=== PATIENT | female | born 1995 | race Caucasian/White ===

== ENCOUNTER 2016-08-07 12:32 | Inpatient (IN) | payer OTHER ==
[2016-08-07] MEDS ORDERED: METHYLERGONOVINE 0.2 MG/ML 1 ML AMP IM PRN (13:15)
[2016-08-07] MEDS ORDERED: LIDOCAINE 1% (PF) 10 MG/ML (30 ML SDV) SQ PRN (13:15)
[2016-08-07] MEDS ORDERED: CARBOPROST TROMETHAMINE 250 MCG/ML 1 ML AMP IM PRN (13:15)
[2016-08-07] MEDS ORDERED: TERBUTALINE 1 MG/ML VIAL SQ PRN (13:15)
[2016-08-07] MEDS ORDERED: OXYTOCIN 10 UNIT/ML 1 ML VIAL IM PRN (13:15)
[2016-08-07] MEDS: LACTATED RINGERS 1,000 ML IV SCH ×2 (13:19→13:59)
[2016-08-07 13:36] LABS: Basophils % (A) 0 %; CH 31.6; CHCM 34.4; Eosinophils # (A) 0.1 k/uL (0-0.7); Eosinophils % (A) 1 %; HCT 40.3 % (34.0-46.0); HDW 2.76; HGB 13.5 gm/dL (11.4-16.0); Luc # (Auto) 0.13; Luc % (Auto) 1; Lymphocytes # (A) 1.6 k/uL (1.0-4.8); Lymphocytes % (A) 10 %; MCHC 33.5 g/dL (31.0-37.0); MCV 92.6 fL (80.0-100.0); Mean Platelet Volume 10.1; Monocytes # (A) 0.5 k/uL (0-1.0); Monocytes % (A) 3 %; Neutrophils # (A) 14.3 k/uL (1.3-7.7); Neutrophils % (A) 86 %; RBC 4.36 m/uL (3.80-5.40); RDW 13.3 % (11.5-15.5); WBC 16.7 k/uL (3.8-10.6); WBC (Perox) 17.96
[2016-08-07] MEDS ORDERED: SODIUM CHLORIDE 0.9% 100 ML BAG ONE (13:50)
[2016-08-07] MEDS ORDERED: BUPIVACAINE (PF) 0.25% 30 ML VIAL ONE (13:50)
[2016-08-07] MEDS ORDERED: fentaNYL (PF) 50 MCG/ML 5 ML AMP ONE (13:50)
[2016-08-07] MEDS ORDERED: BUPIVACAINE (PF) 0.25% 25 ML, fentaNYL (PF) 200 MCG in SODIUM CHLORIDE 0.9% 71 ML EPIDURAL ONE (14:07)
--- NOTE | 2016-08-07 14:57 | P.HPOB ---
History of Present Illness H&P Date: 08/07/16 Chief Complaint: Strong regular uterine contractions This is a 21-year-old white female 1 para 0 EDC 08/07/2016 at 40 weeks gestation. Patient presents with strong regular uterine contractions at home. She denies vaginal bleeding or fluid leakage. Fetus is been active throughout the . Obstetric history: Blood type is O+, group B strep cultures negative, rubella status immune. Pap smear, gonorrhea and chlamydia cultures, urine culture, hepatitis B surface antigen, HIV testing all negative. Thyroid function studies normal. Past medical history is significant for irritable bowel syndrome and heart murmur as a child. Past surgical history oral surgery in the past, colonoscopy. Current medications vitamins. ALLERGIES amoxicillin to which reports blacking out. Family history noncontributory. On exam this is a pleasant white female, vital signs are stable and she is afebrile. The general physical exam is within normal limits. The chest is clear in all chao. Cervix is 8 cm, 100%, -2, vertex. Artificial amniorrhexis reveals clear fluid. heart rate consistent with reactive NST. Epidural is placed and performing well. Impression: 40 week intrauterine , active labor, all signs reassuring. Plan: Close maternal and surveillance. Anticipate normal spontaneous vaginal delivery. Past Medical History Past Medical History: No Reported History History of Any Multi-Drug Resistant Organisms: None Reported Past Surgical History: No Surgical Hx Reported Past Anesthesia/Blood Transfusion Reactions: No Reported Reaction Past Psychological History: No Psychological Hx Reported Smoking Status: Never smoker Past Drug Use History: None Reported - Past Family History Father Family Medical History: Cancer Additional Family Medical History / Comment(s): skin cancer Medications and Allergies Home Medications Medication Instructions Recorded Confirmed Type Pnv with Ca,No.72/Iron/FA 1 tab PO DAILY 08/07/16 08/07/16 History [ Plus Tablet] Allergies Allergy/AdvReac Type Severity Reaction Status Date / Time No Known Allergies Allergy Verified 08/07/16 12:54 Exam - Vital Signs Vital signs: Vital Signs Temp Pulse Resp BP 08/07/16 14:22 97.2 F L 106 H 18 134/90 Intake and Output 08/06/16 08/07/16 08/07/16 22:59 06:59 14:59 Intake Total 1000 Balance 1000 Intake: IV 1000 Lactated Ringers 1,000 ml 1000 @ 125 mls/hr IV .Q8H [facility] Rx#:[id number] Other: # Voids 2 Weight 72.575 kg Patient Weight 08/08/16 06:59 Weight 72.575 kg Results Result Diagrams: 08/07/16 13:15 Abnormal Lab Results - Last 24 Hours (Table) 08/07/16 Range/Units 13:15 WBC 16.7 H (3.8-10.6) k/uL Neutrophils # 14.3 H (1.3-7.7) k/uL
[2016-08-07] MEDS ORDERED: OXYTOCIN 30 UNITS/500 ML NS 30 UNIT in SALINE 1 500ML.BAG IV SCH ×2 (16:00→18:45)
[2016-08-07] MEDS ORDERED: SIMETHICONE 80 MG CHEWABLE PO PRN (18:34)
[2016-08-07] MEDS ORDERED: ACETAMINOPHEN TAB 325 MG TAB PO PRN (18:34)
[2016-08-07] MEDS ORDERED: ZOLPIDEM 5 MG TAB PO PRN (18:34)
[2016-08-07] MEDS ORDERED: LANOLIN CREAM 5 GM TUBE TOPICAL PRN (18:34)
[2016-08-07] MEDS ORDERED: Acetaminophen-Codeine 300-30mg TAB PO PRN (18:34)
[2016-08-07] MEDS ORDERED: HYDROCORTISONE 2.5% RECTAL CREAM 30 GM TUBE RECTAL PRN (18:34)
[2016-08-07] MEDS ORDERED: WITCH HAZEL 1 EACH MED..PAD TOPICAL PRN (18:34)
[2016-08-07] MEDS ORDERED: BENZOCAINE/MENTHOL SPRAY 1 GM/SPRAY AEROSOL TOPICAL PRN (18:34)
[2016-08-07] MEDS ORDERED: diphenhydrAMINE 50 MG/ML 1 ML VIAL IVP PRN ×2 (18:34)
[2016-08-07] MEDS ORDERED: diphenhydrAMINE 25 MG CAP PO PRN (18:34)
[2016-08-07] MEDS ORDERED: diphenhydrAMINE 50 MG CAP PO PRN (18:34)
--- NOTE | 2016-08-07 18:34 | P.PROBDLV ---
Vaginal Delivery Note - . Vaginal Delivery Note: This is a 21-year-old white female 1 para 0 EDC 08/17/2016 at 40 weeks gestation. Patient presented with strong regular uterine contractions from home. Artificial amniorrhexis revealed clear fluid. heart tones were reassuring throughout the first stage of labor. Excellent [id number]-oo-[id number] variability was noted. Patient requested and received an epidural and this was placed without difficulty. She became completely dilated at 1711 hrs. She began the second stage of labor. The epidural was discontinued. heart rate was noted to have occasional late decelerations. For this reason oxygen was given and position changes were instituted. Good recovery to baseline was noted. Patient pushed successfully, and ultimately the perineal body was prepped and draped in usual sterile fashion. There was a large amount of Noted, however the baby delivered occiput anterior and restituted accordingly. The oropharynx, nasopharynx, and external nares were bulb suctioned on the perineal body. Patient was officially delivered of a liveborn female infant at 1814 hrs. Umbilical cord was doubly clamped and ligated, she was handed to waiting nurses for evaluation where scores of 35 and 6 at one and 5 and 10 minutes respectively were given. The placenta delivered spontaneously, it was inspected and noted to be intact with trivascular cord at 1816 hrs. At this time the perineal body was redraped and the uterus was massaged. Speculum cervix, vagina, perineum and periurethral areas revealed a small first- degree perineal laceration that was easily repaired in the usual sterile fashion using 3-0 Vicryl suture. Fundus is firm and in the midline, symmetric and 18 week size upon completion of delivery. Estimated blood loss 350 mL's. All sponge needle and enhancement counts are correct at the end of the procedure. Infant weighed 7 lbs. 13 oz. or 3540 g.
[2016-08-07] MEDS: IBUPROFEN 600 MG TAB PO PRN (18:58)
[2016-08-07 20:01] VITALS: RESP 16
[2016-08-08] MEDS: IBUPROFEN 600 MG TAB PO PRN ×2 (04:14→12:13)
[2016-08-08] MEDS: SENNOSIDES-DOCUSATE SODIUM 1 EACH TAB PO SCH ×2 (04:19→08:18)
--- NOTE | 2016-08-08 08:37 | P.DS ---
Providers Date of admission: 08/07/16 12:51 Expected date of discharge: 08/08/16 Attending physician: Janine [facility] Course: This is a 21-year-old white female 1 para 0 EDC 08/07/2016 at 40 weeks gestation. Patient presented to labor and delivery in active spontaneous labor. was essentially unremarkable, group B strep cultures negative , blood type O positive, rubella status immune. Please see my dictated history and physical for details. Artificial amniorrhexis revealed clear fluid. Epidural was requested and placed. She progressed well through the first stage of labor. Second stage of labor was 1 hour and 3 minutes. She went on to deliver a liveborn female with scores of 35 and 7 at one and 5 and 10 minutes respectively. Infant then transitioned well in the nursery. Estimated blood loss at delivery 350 mL's. Trivascular cord noted with intact placenta. Infant weight 3540 g or 7 lbs. 13 oz. Please see my dictated delivery note for details. A small first-degree perineal laceration was easily repaired. This morning the patient and her baby are both doing well. The patient is voiding, ambulating and passing flatus without difficulty. Vital signs are stable and she is afebrile. Fundus is firm and at the umbilicus, nontender, smooth and symmetric, midline. Minimal to moderate lochia rubra is noted. Perineal body is clean and dry. Breasts are not engorged. Breast-feeding is going well. [place] is doing well. Patient is being discharged home today in very good condition. She will follow- up with me in the office in 6 weeks. I have reminded her no intercourse, tampons or douching. She will use [id number] Advil products, ibuprofen 200 mg pills, 3 every 6 hours as needed for pain. I've asked her to call me with any fevers shakes or chills, foul smelling or copious vaginal drainage, with the passage of large blood clots, with any pain not alleviated by over-the- counter products, with any difficulties breast-feeding, or with any concerns. I have given her prescription for a double electric breast pump. We've discussed options of contraception and we will discuss this further in the office. Patient Condition at Discharge: Good Plan - Discharge Summary Discharge Medication List Pnv with Ca,No.72/Iron/FA [ Plus Tablet] 1 tab PO DAILY 08/07/16 [ History] Follow up Appointment(s)/Referral(s): Janine Narvaez MD [STAFF PHYSICIAN] - 6 Weeks Discharge Disposition: HOME SELF-CARE
[2016-08-08 15:59] VITALS: BP 108/57; PULSE 88; TEMP 97.9
== END 2016-08-08 19:42 | disposition home or self-care (01) | DRG 775 ==
LOC: FBPOP 12:32 → 4FBP 12:51
PROVIDERS: ADMIT Obstetrics & Gynecology; ATTEND Obstetrics & Gynecology
PROC: 10E0XZZ Delivery of Products of Conception, External Approach (ICD-10-PCS; principal; 2016-08-07)
PROC: 10907ZC Drainage of Amniotic Fluid, Therapeutic from Products of Conception, Via Natural or Artificial Opening (ICD-10-PCS; 2016-08-07)
PROC: 0HQ9XZZ Repair Perineum Skin, External Approach (ICD-10-PCS; 2016-08-07)
PROC: 3E0S3NZ Introduction of Analgesics, Hypnotics, Sedatives into Epidural Space, Percutaneous Approach (ICD-10-PCS; 2016-08-07)
DX: O70.0 First degree perineal laceration during delivery (principal); K58.9 Irritable bowel syndrome, unspecified; O76 Abnormality in fetal heart rate and rhythm complicating labor and delivery; O99.62 Diseases of the digestive system complicating childbirth; Z3A.40 40 weeks gestation of pregnancy; Z37.0 Single live birth; Z80.8 Family history of malignant neoplasm of other organs or systems; Z86.79 Personal history of other diseases of the circulatory system; Z88.0 Allergy status to penicillin
CPT/HCPCS: 59025; 85025; 88307; 99213

== ENCOUNTER 2022-10-07 18:38 | Outpatient (CLI) | payer OTHER ==
[2022-10-07 20:47] VITALS: BP 160/95; PULSE 126; RESP 18; TEMP 97.3
--- NOTE | 2022-11-22 11:58 | P.MSEPDOC ---
Presenting Problems - Arrival Data Date of Arrival on Unit: 10/07/22 Time of Arrival on Unit: 18:38 Mode of Transport: Ambulatory - Complaint OB-Reason for Admission/Chief Complaint: Rule Out SROM Comment: pt. states possible SROM at 1805, clear fluid Medical History - Information : 3 Para: 1 Term: 1 : 0 Abortions: Spontaneous or Elective: 1 Number of Living Children: 1 - Gestational Age Gestational Age by ALBA (wks/days): 36 Weeks and 4 Days Review of Systems - Review of Systems Constitutional: No problems Breast: No problems ENT: No problems Cardiovascular: No problems Respiratory: No problems Gastrointestinal: No problems Genitourinary: No problems Musculoskeletal: No problems Neurological: No problems Skin: No problems Vital Signs - Temperature Temperature: 97.3 F Temperature Source: Temporal Artery Scan - Pulse Pulse Oximetery Pulse Rate: 126 Pulse Assessment Method: Automatic Cuff - Respirations Respiratory Rate: 18 Oxygen Delivery Method: Room Air O2 Sat by Pulse Oximetry: 99 - Blood Pressure Right Arm Blood Pressure: 160/95 Blood Pressure Mean: 116 Blood Pressure Source: Automatic Cuff Medical Screen Scoring - Cervical Exam Dilation (cm): 3 Effacement (%): 60 Membranes: Intact - Uterine Contractions Resting: Soft to palpation - Assessment - Baby A Baseline FHR: 125 Heart Rate - NICHD Category: Category I (Normal) NST: Reactive Physician Notification - Physician Notified Physician Notified Date: 10/07/22 Physician Notified Time: 19:52 Physician: Janine Narvaez Order Received: Yes - Notification Comment Comment: pt. presents to triage due to possible SROM, 3 amnisures collected and all 3 negative, cat 1 FHTs, reactive NST, irribility pt. denies any contractions, pt. cervix 3, 60%, high, vitals reviewed inital BP was 160/95, and HR 126,pt. states she is anxiouse BP resolved 125/83 pulse 98. pt. is on flaggel for bacterial vaginosis. order to discharge pt. home on pelvic rest and increase oral fluids. Maternal Triage Index - Maternal Triage Index Presenting for scheduled procedure w/no complaint: No - Stat/Priority 1 Stat Priority 1: No - Urgent/Priority 2 Urgent Priority 2: No - Prompt/Priority 3 Prompt Priority 3: Yes Criteria Met for Priority 3: pt. is 36 weeks and 4 days, christopher for IOL on sunday for IUGR, came to triage due to possible SROM Disposition - Disposition OB Disposition: Physician follow up in office, Discharge to home Discharge Date: 10/07/22 Discharge Time: 20:01 I agree with the RN Medical Screening Exam: Yes Case reviewed; plan agreed upon as documented in EMR&OBIX.: Yes Diagnosis: FALSE LABOR AT OR AFTER 37 COMPLETED WEEKS OF GESTATION
== END 2022-10-07 20:01 | disposition home or self-care (01) ==
LOC: FBPOP 18:38
PROVIDERS: ATTEND Obstetrics & Gynecology
DX: O47.1 False labor at or after 37 completed weeks of gestation (principal); Z3A.36 36 weeks gestation of pregnancy; Z91.040 Latex allergy status; Z88.0 Allergy status to penicillin
CPT/HCPCS: 59025; 84112; G0463; 99213

== ENCOUNTER 2022-10-10 06:00 | Inpatient (IN) | payer OTHER ==
[2022-10-10] MEDS: LACTATED RINGERS 1,000 ML IV SCH ×2 (06:30→16:40)
[2022-10-10] MEDS ORDERED: LIDOCAINE 0.5% (PF) 5 MG/ML (50 ML SDV) SQ PRN (06:41)
[2022-10-10] MEDS ORDERED: TERBUTALINE 1 MG/ML VIAL SQ PRN (06:41)
[2022-10-10 06:48] LABS: Basophils % (A) 0 %; Eosinophils % (A) 0 %; HCT 34.7 % (34.0-46.0); HGB 11.7 gm/dL (11.4-16.0); Lymphocytes # (A) 1.8 k/uL (1.0-4.8); Lymphocytes % (A) 17 %; MCH 30.5 pg (25.0-35.0); MCHC 33.8 g/dL (31.0-37.0); MCV 90.2 fL (80.0-100.0); Mean Platelet Volume 10.7; Monocytes # (A) 0.7 k/uL (0-1.0); Monocytes % (A) 6 %; Neutrophils # (A) 8.2 k/uL (1.3-7.7); Neutrophils % (A) 75 %; Platelet Count 186 k/uL (150-450); RBC 3.85 m/uL (3.80-5.40); RDW 13.4 % (11.5-15.5); WBC 10.8 k/uL (3.8-10.6)
[2022-10-10] MEDS: OXYTOCIN 30 UNITS/500 ML NS 30 UNIT in SALINE 1 500ML.BAG IV SCH ×2 (06:50→12:15)
[2022-10-10 08:49] LABS: Amphetamine Screen,Urine Not Detected (NotDetected); Barbiturate Screen,Urine Not Detected (NotDetected); Benzodiazepines Screen,Urine Not Detected (NotDetected); Cocaine Screen,Urine Not Detected (NotDetected); Methadone Screen, Urine Not Detected (NotDetected); Opiate Screen,Urine Not Detected (NotDetected); Oxycodone Screen, Urine Not Detected (NotDetected); Phencyclidine Screen,Urine Not Detected (NotDetected); Tricyclic Antidepressant,Urine Not Detected (NotDetected); Urn Cannabinoid Scrn Detected (NotDetected)
[2022-10-10] MEDS ORDERED: BUTORPHANOL 1 MG/ML 1 ML VIAL IV PRN (10:28)
--- NOTE | 2022-10-10 12:00 | P.HPOB ---
History of Present Illness H&P Date: 10/10/22 Chief Complaint: Here for induction of labor with IUGR fetus, abnormal umbilical artery Dopp This is a 27-year-old female 3 para 1011 EDC 10/31/2022 at 37 weeks gestation. Patient has been followed carefully in the office for intrauterine growth restriction, estimated weight 5.5 percentile. Umbilical artery Doppler flow revealed abnormal flow proximal to the fetus, mid and distal measurements within normal limits. Recommendation was for delivery at 37 weeks. Fetus has been active throughout the . history is significant for blood type O positive, rubella status immune. VDRL testing, urine culture, hepatitis B surface antigen, HIV testing, group B strep cultures all negative. Past medical history significant for irritable bowel syndrome, heart murmur, benign in nature. Past surgical history colonoscopy, oral surgery. Current medications vitamins daily, baby aspirin daily. ALLERGIES include amoxicillin to which reports passing out, and Vicodin to which she reports passing out. Family history is negative. 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 On exam patient is 5 foot 4 inches, 129 pounds, blood pressure 113/73. Vital signs are otherwise stable and the general exam is within normal limits. Cervix is 3 cm dilated, 70% effaced, -2 station, vertex presentation. Artificial amniorrhexis revealed clear fluid. heart rate consistent with reactive NST. Impression: 37 week intrauterine , severe IUGR with 1 abnormal umbilical artery ratio, proximal to the fetus. Here for induction of labor. Plan: Oxytocin per hospital protocol. Close maternal and surveillance. Anticipating normal spontaneous vaginal delivery. Placenta will be sent to pathology for further evaluation. Review of Systems As per HPI Constitutional: Reports as per HPI Past Medical History Past Medical History: No Reported History History of Any Multi-Drug Resistant Organisms: None Reported Past Surgical History: No Surgical Hx Reported Past Anesthesia/Blood Transfusion Reactions: No Reported Reaction Past Psychological History: No Psychological Hx Reported Smoking Status: Never smoker Past Drug Use History: None Reported - Past Family History Father Family Medical History: Cancer Additional Family Medical History / Comment(s): skin cancer Medications and Allergies Home Medications Medication Instructions Recorded Confirmed Type Pnv,Calcium 72/Iron/Folic Acid 1 tab PO DAILY 08/07/16 10/10/22 History [ Plus Tablet] metroNIDAZOLE [Flagyl] 500 mg PO BID 10/10/22 10/10/22 History Allergies Allergy/AdvReac Type Severity Reaction Status Date / Time latex AdvReac Rash/Hives Verified 10/10/22 06:14 Penicillins AdvReac Unknown Verified 10/10/22 06:14 Childhood Exam Vital Signs Temp Pulse Resp BP Pulse Ox 10/10/22 06:09 97.6 F 98 16 113/73 99 Intake and Output 10/09/22 10/10/22 10/10/22 22:59 06:59 14:59 Other: Weight 58.513 kg See dictation please Results Result Diagrams: 10/10/22 06:30 Abnormal Lab Results - Last 24 Hours (Table) 10/10/22 10/10/22 Range/Units 06:30 07:47 WBC 10.8 H (3.8-10.6) k/uL Neutrophils # 8.2 H (1.3-7.7) k/uL U Marijuana (THC) Screen Detected H (NotDetected) Assessment and Plan Assessment: 37 week intrauterine , severe IUGR, 1 abnormal umbilical artery ratio, proximal to the fetus. Recommendation for delivery at 37 weeks. Plan: Oxytocin per hospital protocol. Close maternal and surveillance. Analgesic options reviewed. Anticipate normal spontaneous vaginal delivery. Time with Patient: Less than 30
[2022-10-10] MEDS ORDERED: ZOLPIDEM 5 MG TAB PO PRN (12:02)
[2022-10-10] MEDS ORDERED: BENZOCAINE/MENTHOL SPRAY 1 GM/SPRAY AEROSOL TOPICAL PRN (12:02)
[2022-10-10] MEDS ORDERED: diphenhydrAMINE 50 MG CAP PO PRN (12:02)
[2022-10-10] MEDS ORDERED: diphenhydrAMINE 25 MG CAP PO PRN (12:02)
[2022-10-10] MEDS ORDERED: diphenhydrAMINE 50 MG/ML 1 ML VIAL IVP PRN ×2 (12:02)
[2022-10-10] MEDS ORDERED: HYDROCORTISONE 2.5% RECTAL CREAM 30 GM TUBE RECTAL PRN (12:02)
[2022-10-10] MEDS ORDERED: LANOLIN CREAM 5 GM TUBE TOPICAL PRN (12:02)
[2022-10-10] MEDS ORDERED: SIMETHICONE 80 MG CHEWABLE PO PRN (12:02)
--- NOTE | 2022-10-10 12:02 | P.PROBDLV ---
Vaginal Delivery Note - . Vaginal Delivery Note: This is a 27-year-old female 3 para 111 EDC 10/31/2022 at 37 weeks gestation who presents today for induction for severe IUGR, estimated weight 5.5 percentile, and one abnormal umbilical artery ratio proximal to the fetus. Please see my dictated history and physical for details. Artificial amniorrhexis revealed clear fluid. Oxytocin was started and titrated per hospital protocol. Patient did receive Stadol 1 dose. She became completely dilated at 1127 hours and began the second stage of labor at that time. Perineal body was prepped and draped in usual sterile fashion. With excellent maternal expulsive efforts the 's head delivered occiput anterior and she restituted accordingly. There was no nuchal cord noted. The right or anterior shoulder was gently delivered from underneath the pubic symphysis at which time the oropharynx, nasopharynx, and external nares were all bulb suction. Patient was officially delivered of a female at 1142 hours. Umbilical cord was doubly clamped and ligated, she was handed to waiting nurses for evaluation where scores of 9 and 10 at one and 5 minutes respectively were given. weighs 2460 g or 5 lbs. 7 oz. Uterus is massaged. Careful inspection of the cervix, vagina, perineum, periurethral, and perirectal areas revealed no lacerations or defects. Total estimated blood loss 150 mL's. All sponge needle and enhancement counts are correct. Patient is allowed to begin the bonding experience in the LDR with her daughter.
[2022-10-11] MEDS: SENNOSIDES-DOCUSATE SODIUM 1 EACH TAB PO SCH ×2 (04:52→10:01)
[2022-10-11 07:13] LABS: Basophils % (A) 0 %; Eosinophils # (A) 0.1 k/uL (0-0.7); Eosinophils % (A) 0 %; HCT 32.5 % (34.0-46.0); HGB 11.1 gm/dL (11.4-16.0); Lymphocytes # (A) 2.2 k/uL (1.0-4.8); Lymphocytes % (A) 18 %; MCH 31.3 pg (25.0-35.0); MCHC 34.2 g/dL (31.0-37.0); MCV 91.6 fL (80.0-100.0); Mean Platelet Volume 9.9; Monocytes # (A) 0.7 k/uL (0-1.0); Monocytes % (A) 6 %; Neutrophils # (A) 8.8 k/uL (1.3-7.7); Neutrophils % (A) 74 %; Platelet Count 164 k/uL (150-450); RBC 3.55 m/uL (3.80-5.40); RDW 13.5 % (11.5-15.5); WBC 11.9 k/uL (3.8-10.6)
[2022-10-11] MEDS ORDERED: IBUPROFEN 600 MG TAB PO PRN (07:55)
[2022-10-11] MEDS ORDERED: ACETAMINOPHEN TAB 325 MG TAB PO PRN (07:56)
--- NOTE | 2022-10-11 08:05 | P.DS ---
Providers Date of admission: 10/10/22 06:04 Expected date of discharge: 10/11/22 Attending physician: Janine Narvaez Primary care physician: Sridevi [facility] Course: This is a 27-year-old female 3 para 101 137 weeks gestation who presented for induction for intrauterine growth restriction and abnormal umbilical artery flow. Blood type is O+, rubella status immune, group B strep cultures negative. Please see my dictated history and physical for details. Artificial amniorrhexis revealed clear fluid. Oxytocin was started and titrated. Patient went on to deliver vaginally a liveborn female infant with scores of 9 and 10 at one and 5 minutes respectively. There were no lacerations encountered. Three-vessel cord. Placenta to pathology. weighed 5 lbs. 7 oz. or 2460 g. Total estimated blood loss 150 mL's. Please see my dictated delivery note for details. This morning the patient is doing well. She is voiding, ambulating, passing flatus without difficulty. Vital signs are stable and she is afebrile. Fundus is firm and in the midline, symmetric and 18 week size. Breasts are not engorged. Breast-feeding is going well. Perineal body is clean and dry. Patient is judged to be in very good condition for discharge home. She will follow-up with me in the office in 6 weeks. I have reminded her no intercourse, tampons or douching. She will use [id number] Advil or Aleve, or Motrin as needed for pain. She will call with any fevers shakes or chills, foul smelling or copious lochia, with the passage of large blood clots, with any pain not alleviated by aonf-jau-nlqyslw products, or indeed with any concerns. Assessment: Doing well first day Patient Condition at Discharge: Good Plan - Discharge Summary Discharge Rx Participant: No New Discharge Prescriptions: No Action Pnv,Calcium 72/Iron/Folic Acid [ Plus Tablet] 1 tab PO DAILY metroNIDAZOLE [Flagyl] 500 mg PO BID Discharge Medication List Pnv,Calcium 72/Iron/Folic Acid [ Plus Tablet] 1 tab PO DAILY 08/07/16 [History] metroNIDAZOLE [Flagyl] 500 mg PO BID 10/10/22 [History] Follow up Appointment(s)/Referral(s): Janine Narvaez MD [STAFF PHYSICIAN] - 6 Weeks Discharge Disposition: HOME SELF-CARE
[2022-10-11 08:22] VITALS: BP 123/82; PULSE 84; RESP 16; TEMP 98.1
== END 2022-10-11 14:16 | disposition home or self-care (01) | DRG 560 ==
LOC: 4FBP 06:04
PROVIDERS: ADMIT Obstetrics & Gynecology; ATTEND Obstetrics & Gynecology
PROC: 10E0XZZ Delivery of Products of Conception, External Approach (ICD-10-PCS; principal; 2022-10-10)
PROC: 10907ZC Drainage of Amniotic Fluid, Therapeutic from Products of Conception, Via Natural or Artificial Opening (ICD-10-PCS; principal; 2022-10-10)
PROC: 3E033VJ Introduction of Other Hormone into Peripheral Vein, Percutaneous Approach (ICD-10-PCS; principal; 2022-10-10)
DX: O36.5930 Maternal care for other known or suspected poor fetal growth, third trimester, not applicable or unspecified (principal); K58.9 Irritable bowel syndrome, unspecified; Z37.0 Single live birth; O69.89X0 Labor and delivery complicated by other cord complications, not applicable or unspecified; Z3A.37 37 weeks gestation of pregnancy; Z28.310 Unvaccinated for COVID-19; O99.62 Diseases of the digestive system complicating childbirth; Z79.82 Long term (current) use of aspirin; Z79.899 Other long term (current) drug therapy; Z88.0 Allergy status to penicillin
CPT/HCPCS: 80306; 85025; 86850; 86900; 86901